=== PATIENT | male | born 1940 | race Caucasian/White ===

== ENCOUNTER 2017-01-19 05:31 | Inpatient (IN) | payer MEDICAID, MEDICARE, OTHER ==
[~2017-01-19] VITALS: Ht 175.3 cm; Wt 91.0 kg
[~2017-01-19 05:31] MED LIST: ATOR20TA86 PO; GLIP5 PO; HYDR-3965 PO; LISI-661 PO; METF500T4 PO; OMEP20 PO; PIOG30TA2 PO; WARF1 PO
[2017-01-19] MEDS ORDERED: NPH,100V SQ (05:47)
[2017-01-19] MEDS ORDERED: WARF2.5 PO (05:47)
[2017-01-19] MEDS ORDERED: ATEN25 PO (05:47)
[2017-01-19] MEDS ORDERED: ATOR40TA28 PO (05:47)
[2017-01-19] MEDS ORDERED: HYDR-3971 PO (05:47)
[2017-01-19] MEDS ORDERED: GLIP10 PO (05:47)
[2017-01-19] MEDS ORDERED: METF500T4 PO (05:47)
[2017-01-19 06:17] LABS: BASOPHILS # (AUTO) 0.07 K/uL (0.00-0.20); BASOPHILS % (AUTO) 0.8 % (0.0-2.0); EOSINOPHILS # (AUTO) 0.22 K/uL (0.00-0.70); EOSINOPHILS % (AUTO) 2.78 % (1.0-6.0); HEMATOCRIT 32.5 % (41-53); HEMOGLOBIN 10.6 g/dL (13.5-17.5); LYMPHOCYTES # (AUTO) 1.4 K/uL (1.0-4.8); LYMPHOCYTES % (AUTO) 17.7 % (22.0-44.0); MEAN CORPUSCULAR HEMOGLOBIN 27.1 pg (26.0-34.0); MEAN CORPUSCULAR HGB CONC 32.4 G/dL (31.0-37.0); MEAN CORPUSCULAR VOLUME 84 fL (80-100); MONOCYTES # (AUTO) 0.5 K/uL (0.1-1.0); MONOCYTES % (AUTO) 5.9 % (2.0-9.0); NEUTROPHILS # (AUTO) 5.9 K/uL (1.8-7.7); NEUTROPHILS % (AUTO) 72.8 % (40.0-70.0); PLATELET COUNT (AUTO) 329 K/uL (150-450); RED CELL DISTRIBUTION WIDTH 16.6 % (11.5-14.5)
[2017-01-19 06:25] LABS: ANION GAP 11 mmol/L (8-16); CALCIUM, TOTAL 8.9 mg/dL (8.8-10.5); CARBON DIOXIDE 27 mmol/L (22-29); CHLORIDE 104 mmol/L (98-107); CREATININE 1.07 mg/dL (0.60-1.30); GLOMERULAR FILTR. RATE CALC > 60 mL/min (>60); POTASSIUM 3.6 mmol/L (3.5-5.1); SODIUM SERUM 142 mmol/L (136-145); UREA NITROGEN, BLOOD 14 mg/dL (7-18)
[2017-01-19 06:30] LABS: PROTHROMBIN TIME 59.5 SEC (9.4-11.6)
[2017-01-19 06:32] LABS: ALANINE AMINOTRANSFERASE 15 U/L (12-78); ALBUMIN 3.2 g/dL (3.4-5.0); ASPARTATE AMINOTRANSFERASE 5 U/L (15-37); BILIRUBIN,TOTAL 0.3 mg/dL (0.1-1.0); CREATINE KINASE, TOTAL 71 U/L (39-308); TOTAL PROTEIN, SERUM 7.1 g/dL (6.4-8.2)
[2017-01-19 06:34] LABS: INR 5.6 (0.9-1.1)
[2017-01-19 06:38] LABS: B-TYPE NATRIURETIC PEPTIDE 179 pg/mL (0-100)
[2017-01-19] MEDS ORDERED: ALBUTEROL SULFATE 2.5 MG/0.5 ML NEB SOLUTION NEB ONE (07:00)
[2017-01-19] MEDS ORDERED: IPRATROPIUM BROMIDE 0.5 MG/2.5 ML NEB SOLUTION NEB ONE (07:00)
[2017-01-19] MEDS ORDERED: ACETAMINOPHEN 325 MG TABLET PO PRN ×2 (08:45→17:45)
[2017-01-19] MEDS ORDERED: ONDANSETRON HCL 4 MG/2 ML VIAL IVP PRN (08:45)
[2017-01-19] MEDS ORDERED: LEVOFLOXACIN 500 MG/D5% WATER 100 ML IV ONE (08:45)
[2017-01-19] MEDS ORDERED: 0.9% SODIUM CHLORIDE 10 ML SYRINGE IVP PRN ×2 (08:45→17:45)
[2017-01-19] MEDS ORDERED: CloNIDine HCL 0.2 MG TABLET PO ONE (09:00)
[2017-01-19] MEDS ORDERED: METOPROLOL SUCCINATE 25 MG ER TABLET PO ONE (09:00)
[2017-01-19 09:29] LABS: APPEARANCE,URINE CLEAR (CLEAR); GLUCOSE, URINE (UA) 500 mg/dL (NEGATIVE); KETONES,URINE NEGATIVE (NEGATIVE); LEUKOCYTE ESTERASE ,URINE NEGATIVE (NEGATIVE); OCCULT BLOOD,URINE TRACE (NEGATIVE); PH,URINE 6.5 (5.0-8.0); PROTEIN,URINE SEE CONFIRM (NEGATIVE)
[2017-01-19 09:30] LABS: ADD UA MICROSCOPIC YES
[2017-01-19 09:37] LABS: SULFOSALICYLIC ACID,URINE 1+ (Negative)
[2017-01-19 09:38] LABS: RBC,URINE 0-2 /HPF (0-2); SQUAMOUS EPITHELIAL CELL,UR Few /LPF (None Seen); WBC,URINE None Seen /HPF (0-5)
[2017-01-19 10:55] VITALS: BP 169/78
[2017-01-19 15:45] VITALS: BP 149/77
[2017-01-19] MEDS ORDERED: ALBUTEROL SULFATE 2.5 MG/0.5 ML NEB SOLUTION NEB PRN (17:45)
[2017-01-19] MEDS ORDERED: OxyCODONE HCL/ACETAMINOPHEN 5-325 MG TABLET PO PRN (17:45)
[2017-01-19] MEDS ORDERED: DEXTROSE 50%-WATER 25 GM/50 ML SYRINGE IVP PRN (17:45)
[2017-01-19] MEDS ORDERED: MAGNESIUM HYDROXIDE SUSPENSION 30 ML UDCUP PO PRN (17:45)
[2017-01-19] MEDS ORDERED: SODIUM CHLORIDE 0.9% 250 ML IV ONE (18:00)
[2017-01-19] MEDS: LISINOPRIL 10 MG TABLET PO SCH (18:07)
[2017-01-19] MEDS: ATENOLOL 25 MG TABLET PO SCH (18:10)
[2017-01-19] MEDS: INSULIN ASPART 100 UNITS/ML SQ PRN ×2 (18:12→22:30)
[2017-01-19] MEDS: ATORVASTATIN CALCIUM 40 MG TABLET PO SCH (18:13)
[2017-01-19] MEDS: PANTOPRAZOLE SODIUM 40 MG/VIAL IVP SCH (18:13)
[2017-01-19] MEDS: CefTRIAXone 1 GM/DEXTROSE 50 ML IV SCH (18:54)
[2017-01-19 19:32] VITALS: BP 151/79
[2017-01-19] MEDS: OXYGEN THERAPY IH SCH (20:23)
[2017-01-19] MEDS: DOCUSATE SODIUM 100 MG CAPSULE PO SCH (20:23)
[2017-01-19] MEDS: IPRATROPIUM BROMIDE 0.5 MG/2.5 ML NEB SOLUTION NEB SCH (21:51)
[2017-01-19] MEDS: ALBUTEROL SULFATE 2.5 MG/0.5 ML NEB SOLUTION NEB SCH (21:51)
[2017-01-19 23:31] VITALS: BP 148/73
[2017-01-20] MEDS: ALBUTEROL SULFATE 2.5 MG/0.5 ML NEB SOLUTION NEB SCH ×4 (02:00→19:40)
[2017-01-20] MEDS: IPRATROPIUM BROMIDE 0.5 MG/2.5 ML NEB SOLUTION NEB SCH ×4 (02:00→19:40)
[2017-01-20] MEDS: OxyCODONE HCL/ACETAMINOPHEN 5-325 MG TABLET PO PRN ×2 (03:37→20:22)
[2017-01-20 03:58] VITALS: BP 135/74
[2017-01-20 06:18] LABS: BASOPHILS % (AUTO) 0.6 % (0.0-2.0); EOSINOPHILS % (AUTO) 2.4 % (1.0-6.0); HEMATOCRIT 30.1 % (41-53); LYMPHOCYTES # (AUTO) 1.9 K/uL (1.0-4.8); LYMPHOCYTES % (AUTO) 19.3 % (22.0-44.0); MEAN CORPUSCULAR HEMOGLOBIN 27.2 pg (26.0-34.0); MEAN CORPUSCULAR HGB CONC 33.1 G/dL (31.0-37.0); MEAN CORPUSCULAR VOLUME 82 fL (80-100); MONOCYTES # (AUTO) 0.7 K/uL (0.1-1.0); NEUTROPHILS % (AUTO) 70.7 % (40.0-70.0); PLATELET COUNT (AUTO) 345 K/uL (150-450); RED BLOOD CELL COUNT(AUTO) 3.66 MIL/uL (4.50-5.90); RED CELL DISTRIBUTION WIDTH 16.7 % (11.5-14.5); WHITE BLOOD COUNT (AUTO) 9.9 K/uL (4.5-11.0)
[2017-01-20 06:22] LABS: PROTHROMBIN TIME 47.2 SEC (9.4-11.6)
[2017-01-20] MEDS: INSULIN ASPART 100 UNITS/ML SQ PRN ×4 (06:23→21:03)
[2017-01-20 06:43] LABS: ALANINE AMINOTRANSFERASE 16 U/L (12-78); ANION GAP 9 mmol/L (8-16); ASPARTATE AMINOTRANSFERASE 11 U/L (15-37); BILIRUBIN,TOTAL 0.4 mg/dL (0.1-1.0); CALCIUM, TOTAL 9.1 mg/dL (8.8-10.5); CARBON DIOXIDE 27 mmol/L (22-29); CHLORIDE 102 mmol/L (98-107); CREATININE 1.05 mg/dL (0.60-1.30); GLOMERULAR FILTR. RATE CALC > 60 mL/min (>60); POTASSIUM 4.4 mmol/L (3.5-5.1); SODIUM SERUM 138 mmol/L (136-145); TOTAL PROTEIN, SERUM 6.8 g/dL (6.4-8.2); UREA NITROGEN, BLOOD 19 mg/dL (7-18)
[2017-01-20 07:50] VITALS: BP 139/83
[2017-01-20 08:06] LABS: INR 4.5 (0.9-1.1)
[2017-01-20] MEDS: LISINOPRIL 10 MG TABLET PO SCH (08:42)
[2017-01-20] MEDS: DOCUSATE SODIUM 100 MG CAPSULE PO SCH ×2 (08:42→20:22)
[2017-01-20] MEDS: PANTOPRAZOLE SODIUM 40 MG/VIAL IVP SCH (08:42)
[2017-01-20] MEDS: OXYGEN THERAPY IH SCH ×2 (08:42→20:00)
[2017-01-20] MEDS: ATORVASTATIN CALCIUM 40 MG TABLET PO SCH (08:43)
[2017-01-20] MEDS: ATENOLOL 25 MG TABLET PO SCH (08:46)
[2017-01-20 11:14] VITALS: BP 129/70
[2017-01-20] MEDS ORDERED: MAGNESIUM SULFATE 4 GM/WATER 100 ML IV ONE (12:45)
[2017-01-20 13:18] LABS: THYROID STIMULATING HORMONE 3.76 uIU/mL (0.36-3.74)
[2017-01-20] MEDS ORDERED: SODIUM CHLORIDE 0.9% 100 ML ONE ×2 (13:40→15:48)
[2017-01-20] MEDS ORDERED: *CLINICAL-WARFARIN SODIUM DOSING CLINICAL ONE ×2 (15:00)
[2017-01-20] MEDS ORDERED: IOVERSOL 350 MG/ML 100 ML VIAL ONE (15:48)
[2017-01-20 16:25] VITALS: BP 165/77
[2017-01-20] MEDS: CefTRIAXone 1 GM/DEXTROSE 50 ML IV SCH (18:29)
[2017-01-20 19:29] VITALS: BP 156/75
[2017-01-20 23:44] VITALS: BP 122/75
[2017-01-21] MEDS: ALBUTEROL SULFATE 2.5 MG/0.5 ML NEB SOLUTION NEB SCH ×4 (02:34→19:38)
[2017-01-21] MEDS: IPRATROPIUM BROMIDE 0.5 MG/2.5 ML NEB SOLUTION NEB SCH ×4 (02:34→19:38)
[2017-01-21 04:46] VITALS: BP 145/77
[2017-01-21] MEDS: INSULIN ASPART 100 UNITS/ML SQ PRN ×4 (05:35→20:31)
[2017-01-21 07:10] LABS: BASOPHILS # (AUTO) 0.06 K/uL (0.00-0.20); BASOPHILS % (AUTO) 0.7 % (0.0-2.0); EOSINOPHILS # (AUTO) 0.22 K/uL (0.00-0.70); EOSINOPHILS % (AUTO) 2.78 % (1.0-6.0); HEMATOCRIT 28.6 % (41-53); HEMOGLOBIN 9.3 g/dL (13.5-17.5); LYMPHOCYTES # (AUTO) 1.9 K/uL (1.0-4.8); LYMPHOCYTES % (AUTO) 23.9 % (22.0-44.0); MEAN CORPUSCULAR HEMOGLOBIN 27.3 pg (26.0-34.0); MEAN CORPUSCULAR HGB CONC 32.6 G/dL (31.0-37.0); MEAN CORPUSCULAR VOLUME 84 fL (80-100); MONOCYTES # (AUTO) 0.6 K/uL (0.1-1.0); MONOCYTES % (AUTO) 7.9 % (2.0-9.0); NEUTROPHILS # (AUTO) 5.2 K/uL (1.8-7.7); NEUTROPHILS % (AUTO) 64.7 % (40.0-70.0); PLATELET COUNT (AUTO) 282 K/uL (150-450); RED BLOOD CELL COUNT(AUTO) 3.42 MIL/uL (4.50-5.90); RED CELL DISTRIBUTION WIDTH 16.8 % (11.5-14.5); WHITE BLOOD COUNT (AUTO) 8.1 K/uL (4.5-11.0)
[2017-01-21 07:15] LABS: INR 2.6 (0.9-1.1); PROTHROMBIN TIME 27.4 SEC (9.4-11.6)
[2017-01-21 07:31] VITALS: BP 108/63
[2017-01-21 08:11] LABS: ANION GAP 9 mmol/L (8-16); CALCIUM, TOTAL 9.1 mg/dL (8.8-10.5); CARBON DIOXIDE 28 mmol/L (22-29); CHLORIDE 103 mmol/L (98-107); CREATININE 0.99 mg/dL (0.60-1.30); GLOMERULAR FILTR. RATE CALC > 60 mL/min (>60); POTASSIUM 4.2 mmol/L (3.5-5.1); SODIUM SERUM 140 mmol/L (136-145); UREA NITROGEN, BLOOD 20 mg/dL (7-18)
[2017-01-21] MEDS: OXYGEN THERAPY IH SCH ×2 (08:22→20:32)
[2017-01-21 08:28] LABS: GLUCOSE,POINT OF CARE 339 MG/DL (70-110)
[2017-01-21 08:28] LABS: GLUCOSE,POINT OF CARE 238 MG/DL (70-110)
[2017-01-21] MEDS: ATENOLOL 25 MG TABLET PO SCH (09:00)
[2017-01-21] MEDS: PANTOPRAZOLE SODIUM 40 MG/VIAL IVP SCH (09:32)
[2017-01-21] MEDS: DOCUSATE SODIUM 100 MG CAPSULE PO SCH ×2 (09:32→20:21)
[2017-01-21] MEDS: ATORVASTATIN CALCIUM 40 MG TABLET PO SCH (09:32)
[2017-01-21] MEDS: LISINOPRIL 10 MG TABLET PO SCH (09:34)
[2017-01-21 11:31] VITALS: BP 158/77
[2017-01-21 11:53] LABS: MAGNESIUM 1.4 mg/dL (1.80-2.40)
[2017-01-21] MEDS ORDERED: WARFARIN SODIUM-INR 2.0-3.0-RX DOSING PER PROTOCOL PO PRN (12:30)
[2017-01-21] MEDS ORDERED: MAGNESIUM SULFATE 2 GM in DEXTROSE 5%-WATER 50 ML IV PRN (12:45)
[2017-01-21] MEDS ORDERED: MAGNESIUM SULFATE 4 GM/WATER 100 ML IV PRN (12:45)
[2017-01-21 13:15] LABS: ABG A-A DIFF O2 15.8 mmHg (10-20.0); ABG BASE EXCESS 2.5 mmol/L (-2.0-3.0); ABG HCO3 26.2 mmol/L (22.0-26.0); ABG OXYHEMOGLOBIN 93.4 % (94.0-100.0); ABG PCO2 47 mmHg (35-45); ABG PH 7.383 (7.35-7.450); TEMPERATURE, FAHRENHEIT, BG 98.6 FAHREN (96.0-98.6)
[2017-01-21 13:16] LABS: ALLEN TEST, BLOOD GAS Positive
[2017-01-21] MEDS: AmLODIPine BESYLATE 5 MG TABLET PO SCH (13:27)
[2017-01-21 15:18] VITALS: BP 153/87
[2017-01-21] MEDS ORDERED: WARFARIN SODIUM 2 MG TABLET PO ONE (17:00)
[2017-01-21] MEDS: CefTRIAXone 1 GM/DEXTROSE 50 ML IV SCH (17:25)
[2017-01-21 17:32] LABS: GLUCOSE COMMENT 1 Received Meds; GLUCOSE,POINT OF CARE 246 MG/DL (70-110)
[2017-01-21 17:32] LABS: GLUCOSE,POINT OF CARE 294 MG/DL (70-110)
[2017-01-21 17:32] LABS: GLUCOSE COMMENT 1 Received Meds; GLUCOSE,POINT OF CARE 253 MG/DL (70-110)
[2017-01-21 17:33] LABS: GLUCOSE COMMENT 1 Received Meds; GLUCOSE,POINT OF CARE 387 MG/DL (70-110)
[2017-01-21 17:33] LABS: GLUCOSE,POINT OF CARE 309 MG/DL (70-110)
[2017-01-21 17:33] LABS: GLUCOSE COMMENT 1 Received Meds; GLUCOSE,POINT OF CARE 197 MG/DL (70-110)
[2017-01-21 17:33] LABS: GLUCOSE,POINT OF CARE 192 MG/DL (70-110)
[2017-01-21 20:02] VITALS: BP 110/72
[2017-01-22 00:09] VITALS: BP 102/57
[2017-01-22] MEDS: IPRATROPIUM BROMIDE 0.5 MG/2.5 ML NEB SOLUTION NEB SCH ×4 (02:26→20:00)
[2017-01-22] MEDS: ALBUTEROL SULFATE 2.5 MG/0.5 ML NEB SOLUTION NEB SCH ×4 (02:26→20:00)
[2017-01-22 05:29] VITALS: BP 137/75
[2017-01-22] MEDS: INSULIN ASPART 100 UNITS/ML SQ PRN ×3 (06:15→17:47)
[2017-01-22 06:50] LABS: INR 1.7 (0.9-1.1); PROTHROMBIN TIME 18.1 SEC (9.4-11.6)
[2017-01-22 06:54] LABS: BASOPHILS # (AUTO) 0.07 K/uL (0.00-0.20); BASOPHILS % (AUTO) 0.7 % (0.0-2.0); EOSINOPHILS % (AUTO) 1.91 % (1.0-6.0); HEMATOCRIT 30.6 % (41-53); LYMPHOCYTES # (AUTO) 1.8 K/uL (1.0-4.8); LYMPHOCYTES % (AUTO) 17.3 % (22.0-44.0); MEAN CORPUSCULAR HEMOGLOBIN 27.5 pg (26.0-34.0); MEAN CORPUSCULAR HGB CONC 32.7 G/dL (31.0-37.0); MEAN CORPUSCULAR VOLUME 84 fL (80-100); MONOCYTES # (AUTO) 0.8 K/uL (0.1-1.0); MONOCYTES % (AUTO) 7.8 % (2.0-9.0); NEUTROPHILS # (AUTO) 7.5 K/uL (1.8-7.7); NEUTROPHILS % (AUTO) 72.4 % (40.0-70.0); PLATELET COUNT (AUTO) 318 K/uL (150-450); RED BLOOD CELL COUNT(AUTO) 3.64 MIL/uL (4.50-5.90); RED CELL DISTRIBUTION WIDTH 16.6 % (11.5-14.5); WHITE BLOOD COUNT (AUTO) 10.4 K/uL (4.5-11.0)
[2017-01-22 07:19] VITALS: BP 163/90
[2017-01-22 07:57] LABS: GLUCOSE COMMENT 1 Received Meds; GLUCOSE,POINT OF CARE 229 MG/DL (70-110)
[2017-01-22 07:57] LABS: GLUCOSE COMMENT 1 Received Meds; GLUCOSE,POINT OF CARE 349 MG/DL (70-110)
[2017-01-22] MEDS: OXYGEN THERAPY IH SCH ×2 (08:35→20:00)
[2017-01-22] MEDS: LISINOPRIL 10 MG TABLET PO SCH (08:36)
[2017-01-22] MEDS: ATORVASTATIN CALCIUM 40 MG TABLET PO SCH (08:36)
[2017-01-22] MEDS: DOCUSATE SODIUM 100 MG CAPSULE PO SCH ×2 (08:36→19:58)
[2017-01-22] MEDS: PANTOPRAZOLE SODIUM 40 MG/VIAL IVP SCH (08:36)
[2017-01-22] MEDS: AmLODIPine BESYLATE 5 MG TABLET PO SCH (08:36)
[2017-01-22 11:36] VITALS: BP 157/99
[2017-01-22] MEDS ORDERED: AMLO-511 PO (12:41)
[2017-01-22] MEDS ORDERED: MAGOX PO (12:42)
[2017-01-22] MEDS ORDERED: MAGNESIUM SULFATE 1 GM in DEXTROSE 5%-WATER 50 ML IV ONE (14:45)
[2017-01-22 14:57] LABS: GLUCOSE COMMENT 1 Received Meds; GLUCOSE,POINT OF CARE 227 MG/DL (70-110)
[2017-01-22] MEDS ORDERED: MAGNESIUM SULFATE 2 GM in DEXTROSE 5%-WATER 50 ML IV ONE (15:00)
[2017-01-22 15:31] VITALS: BP 156/86
[2017-01-22] MEDS ORDERED: WARFARIN SODIUM 3 MG TABLET PO SCH (17:00)
[2017-01-22] MEDS: CefTRIAXone 1 GM/DEXTROSE 50 ML IV SCH (17:46)
[2017-01-22 19:35] VITALS: BP 155/69
[2017-01-22 19:57] LABS: GLUCOSE,POINT OF CARE 284 MG/DL (70-110)
== END 2017-01-22 20:15 | disposition home or self-care (01) | DRG 813 ==
LOC: EMS 05:32 → 5S 09:00
PROVIDERS: ADMIT Internal Medicine; ATTEND Internal Medicine
DX: D68.32 Hemorrhagic disorder due to extrinsic circulating anticoagulants (principal); J18.9 Pneumonia, unspecified organism; R04.2 Hemoptysis; D68.9 Coagulation defect, unspecified; E11.9 Type 2 diabetes mellitus without complications; I44.1 Atrioventricular block, second degree; R60.0 Localized edema; I10 Essential (primary) hypertension; E78.5 Hyperlipidemia, unspecified; E78.00 Pure hypercholesterolemia, unspecified; J40 Bronchitis, not specified as acute or chronic; T45.515A Adverse effect of anticoagulants, initial encounter
CPT/HCPCS: 71260; 82805; 82962; 83605; 83735; 84436; 84443; 84481; 87040; 93005; 93306; 94640; 96365; 96366; 99285; C9113; J0696; J1956; J3475; J7050; J7060

== ENCOUNTER 2017-04-01 02:02 | Emergency (ER) | payer MEDICARE, MEDICAID ==
[~2017-04-01] VITALS: Ht 172.7 cm; Wt 98.0 kg
[~2017-04-01 02:02] MED LIST changes: +AMLO-511 PO; -ATOR20TA86 PO; +ATOR40TA28 PO; -GLIP5 PO; -HYDR-3965 PO; +HYDR-4069 PO; +MAGOX PO; -PIOG30TA2 PO; -WARF1 PO; +WARF2.5 PO
[2017-04-01] MEDS ORDERED: NPH,100V SQ (02:13)
[2017-04-01] MEDS ORDERED: GABA-529 PO (02:13)
[2017-04-01] MEDS ORDERED: GLIP10 PO (02:13)
[2017-04-01 02:46] LABS: BASOPHILS % (AUTO) 0.7 % (0.0-2.0); EOSINOPHILS % (AUTO) 1.9 % (1.0-6.0); HEMATOCRIT 38.3 % (41-53); HEMOGLOBIN 12.7 g/dL (13.5-17.5); LYMPHOCYTES # (AUTO) 2.7 K/uL (1.0-4.8); LYMPHOCYTES % (AUTO) 26.6 % (22.0-44.0); MEAN CORPUSCULAR HEMOGLOBIN 27.2 pg (26.0-34.0); MEAN CORPUSCULAR HGB CONC 33.2 G/dL (31.0-37.0); MEAN CORPUSCULAR VOLUME 82 fL (80-100); MONOCYTES # (AUTO) 0.7 K/uL (0.1-1.0); MONOCYTES % (AUTO) 7.1 % (2.0-9.0); NEUTROPHILS # (AUTO) 6.4 K/uL (1.8-7.7); NEUTROPHILS % (AUTO) 63.7 % (40.0-70.0); PLATELET COUNT (AUTO) 370 K/uL (150-450); RED BLOOD CELL COUNT(AUTO) 4.68 MIL/uL (4.50-5.90); RED CELL DISTRIBUTION WIDTH 15.4 % (11.5-14.5); WHITE BLOOD COUNT (AUTO) 10.1 K/uL (4.5-11.0)
[2017-04-01 02:52] LABS: PROTHROMBIN TIME 10.4 SEC (9.4-11.6)
[2017-04-01 02:53] LABS: ANION GAP 10 mmol/L (8-16); CALCIUM, TOTAL 9.2 mg/dL (8.8-10.5); CARBON DIOXIDE 28 mmol/L (22-29); CHLORIDE 99 mmol/L (98-107); CREATININE 1.15 mg/dL (0.60-1.30); GLOMERULAR FILTR. RATE CALC > 60 mL/min (>60); SODIUM SERUM 137 mmol/L (136-145); UREA NITROGEN, BLOOD 17 mg/dL (7-18)
[2017-04-01 03:01] LABS: ALANINE AMINOTRANSFERASE 32 U/L (12-78); ALBUMIN 3.5 g/dL (3.4-5.0); ASPARTATE AMINOTRANSFERASE 16 U/L (15-37); BILIRUBIN,TOTAL 0.3 mg/dL (0.1-1.0); CREATINE KINASE, TOTAL 56 U/L (39-308)
[2017-04-01 03:21] LABS: B-TYPE NATRIURETIC PEPTIDE 93 pg/mL (0-100)
[2017-04-01] MEDS ORDERED: ACETAMINOPHEN 500 MG TABLET PO ONE (04:00)
[2017-04-01] MEDS ORDERED: KETOROLAC TROMETHAMINE 60 MG/2 ML VIAL IM ONE (04:00)
[2017-04-01 04:23] VITALS: BP 146/98
== END 2017-04-01 04:50 | disposition home or self-care (01) ==
LOC: EMS 02:04
DX: R07.89 Other chest pain (principal); E11.65 Type 2 diabetes mellitus with hyperglycemia; M54.5 Low back pain; K21.9 Gastro-esophageal reflux disease without esophagitis; E78.00 Pure hypercholesterolemia, unspecified; I10 Essential (primary) hypertension
CPT/HCPCS: 36415; 71010; 80053; 82550; 83880; 84484; 85025; 85610; 85730; 93005; 96372; 99285; J1885

== ENCOUNTER 2017-12-31 23:58 | Emergency (ER) | payer OTHER ==
[~2017-12-31] VITALS: Ht 170.2 cm; Wt 90.9 kg
[~2017-12-31 23:58] MED LIST changes: +GABA-529 PO; +GLIP10 PO; -METF500T4 PO; +METF500T6 PO; +NPH,100V SQ; -WARF2.5 PO
[2018-01-01] MEDS ORDERED: PRIM50TA29 PO (00:34)
[2018-01-01] MEDS ORDERED: TRAZ-144 PO (00:34)
[2018-01-01] MEDS ORDERED: VITAD400 PO (00:34)
[2018-01-01] MEDS ORDERED: IBUP-2070 PO (00:35)
[2018-01-01] MEDS ORDERED: NAPR-1024 PO (00:35)
[2018-01-01] MEDS ORDERED: FURO20 PO (00:35)
[2018-01-01] MEDS ORDERED: LISI40TA4 PO (00:35)
[2018-01-01] MEDS ORDERED: FERR-89 PO (00:35)
[2018-01-01 01:47] LABS: APPEARANCE,URINE CLEAR (CLEAR); BILIRUBIN,URINE NEGATIVE (NEGATIVE); GLUCOSE, URINE (UA) 500 mg/dL (NEGATIVE); KETONES,URINE NEGATIVE (NEGATIVE); LEUKOCYTE ESTERASE ,URINE NEGATIVE (NEGATIVE); NITRATE,URINE NEGATIVE (NEGATIVE); OCCULT BLOOD,URINE NEGATIVE (NEGATIVE); PH,URINE 6.5 (5.0-8.0); PROTEIN,URINE NEGATIVE (NEGATIVE); UROBILINOGEN,URINE 0.2 mg/dL (<=1.0)
[2018-01-01 01:47] LABS: BASOPHILS % (AUTO) 0.3 % (0.0-2.0); HEMATOCRIT 33.2 % (41-53); HEMOGLOBIN 11.6 g/dL (13.5-17.5); LYMPHOCYTES # (AUTO) 2.2 K/uL (1.0-4.8); LYMPHOCYTES % (AUTO) 25.7 % (22.0-44.0); MEAN CORPUSCULAR HEMOGLOBIN 30.8 pg (26.0-34.0); MEAN CORPUSCULAR HGB CONC 35.1 G/dL (31.0-37.0); MEAN CORPUSCULAR VOLUME 88 fL (80-100); MONOCYTES # (AUTO) 0.7 K/uL (0.1-1.0); MONOCYTES % (AUTO) 7.8 % (2.0-9.0); NEUTROPHILS # (AUTO) 5.5 K/uL (1.8-7.7); NEUTROPHILS % (AUTO) 63.2 % (40.0-70.0); PLATELET COUNT (AUTO) 291 K/uL (150-450); RED BLOOD CELL COUNT(AUTO) 3.78 MIL/uL (4.50-5.90)
[2018-01-01 02:03] LABS: BACTERIA,URINE None Seen /HPF (None Seen); RBC,URINE None Seen /HPF (0-2); WBC,URINE None Seen /HPF (0-5)
[2018-01-01 02:06] LABS: CALCIUM, TOTAL 8.8 mg/dL (8.8-10.5); CREATININE 1.21 mg/dL (0.60-1.30)
[2018-01-01 02:13] LABS: ALBUMIN 3.6 g/dL (3.4-5.0); BILIRUBIN,TOTAL 0.3 mg/dL (0.1-1.0); TOTAL PROTEIN, SERUM 7.1 g/dL (6.4-8.2)
[2018-01-01 02:32] VITALS: BP 139/73
[2018-01-01] MEDS ORDERED: FUROSEMIDE 20 MG TABLET PO ONE (03:15)
== END 2018-01-01 03:28 | disposition home or self-care (01) ==
LOC: EMS 23:59
DX: I11.0 Hypertensive heart disease with heart failure (principal); I50.9 Heart failure, unspecified; K21.9 Gastro-esophageal reflux disease without esophagitis; E11.9 Type 2 diabetes mellitus without complications; E78.00 Pure hypercholesterolemia, unspecified; I10 Essential (primary) hypertension
CPT/HCPCS: 93005; 93971; 99285

== ENCOUNTER 2018-02-19 10:12 | Emergency (ER) | payer OTHER ==
[~2018-02-19] VITALS: Ht 170.2 cm; Wt 86.4 kg
[~2018-02-19 10:12] MED LIST changes: +FERR-89 PO; +FURO20 PO; -HYDR-4069 PO; +IBUP-2070 PO; -LISI-661 PO; +LISI40TA4 PO; -MAGOX PO; +NAPR-1024 PO; -NPH,100V SQ; +PRIM50TA29 PO; +TRAZ-184 PO; +VITAD400 PO
[2018-02-19 10:21] VITALS: BP 183/110
[2018-02-19 10:24] LABS: GLUCOSE,POINT OF CARE 226 MG/DL (70-110)
[2018-02-19] MEDS ORDERED: BACITRACIN 0.9 GM PACKET OINTMENT TP ONE (12:00)
== END 2018-02-19 12:45 | disposition home or self-care (01) ==
LOC: EMS 10:15
DX: E11.621 Type 2 diabetes mellitus with foot ulcer (principal); L97.229 Non-pressure chronic ulcer of left calf with unspecified severity; K21.9 Gastro-esophageal reflux disease without esophagitis; E78.00 Pure hypercholesterolemia, unspecified; I10 Essential (primary) hypertension; M19.90 Unspecified osteoarthritis, unspecified site; Z79.4 Long term (current) use of insulin; Z79.899 Other long term (current) drug therapy; Z79.84 Long term (current) use of oral hypoglycemic drugs
CPT/HCPCS: 99282

== ENCOUNTER 2018-05-27 14:27 | Inpatient (IN) | payer OTHER ==
[~2018-05-27] VITALS: Ht 170.2 cm; Wt 88.9 kg
[~2018-05-27 14:27] MED LIST changes: -AMLO-511 PO; +METF-960 PO; -METF500T6 PO; +TAMS0.4C32 PO
[2018-05-27] MEDS ORDERED: SODIUM CHLORIDE 0.9% 1,000 ML IV ONE ×2 (15:45→20:30)
[2018-05-27 15:57] LABS: BASOPHILS % (AUTO) 3.2 % (0.0-2.0); EOSINOPHILS % (AUTO) 1.8 % (1.0-6.0); HEMOGLOBIN 12.2 g/dL (13.5-17.5); LYMPHOCYTES # (AUTO) 1.6 K/uL (1.0-4.8); LYMPHOCYTES % (AUTO) 16.2 % (22.0-44.0); MEAN CORPUSCULAR HEMOGLOBIN 29.8 pg (26.0-34.0); MEAN CORPUSCULAR VOLUME 88 fL (80-100); MONOCYTES # (AUTO) 0.5 K/uL (0.1-1.0); MONOCYTES % (AUTO) 5.2 % (2.0-9.0); NEUTROPHILS # (AUTO) 7.4 K/uL (1.8-7.7); NEUTROPHILS % (AUTO) 73.6 % (40.0-70.0); PLATELET COUNT (AUTO) 305 K/uL (150-450); RED CELL DISTRIBUTION WIDTH 13.3 % (11.5-14.5)
[2018-05-27 16:08] LABS: INR 0.9 (0.9-1.1); PROTHROMBIN TIME 9.9 SEC (9.4-11.6)
[2018-05-27 16:15] LABS: ALBUMIN 3.5 g/dL (3.4-5.0); BILIRUBIN,TOTAL 0.3 mg/dL (0.1-1.0); CALCIUM, TOTAL 9.1 mg/dL (8.8-10.5); CREATININE 1.62 mg/dL (0.60-1.30); POTASSIUM 4.6 mmol/L (3.5-5.1); TOTAL PROTEIN, SERUM 7.3 g/dL (6.4-8.2)
[2018-05-27 16:34] LABS: APPEARANCE,URINE CLEAR (CLEAR); BILIRUBIN,URINE NEGATIVE (NEGATIVE); GLUCOSE, URINE (UA) >=1000 mg/dL (NEGATIVE); KETONES,URINE NEGATIVE (NEGATIVE); LEUKOCYTE ESTERASE ,URINE NEGATIVE (NEGATIVE); NITRATE,URINE NEGATIVE (NEGATIVE); OCCULT BLOOD,URINE NEGATIVE (NEGATIVE); PH,URINE 5.5 (5.0-8.0); PROTEIN,URINE NEGATIVE (NEGATIVE); UROBILINOGEN,URINE 0.2 mg/dL (<=1.0)
[2018-05-27 16:52] LABS: BACTERIA,URINE None Seen /HPF (None Seen); RBC,URINE 0-2 /HPF (0-2); WBC,URINE None Seen /HPF (0-5)
[2018-05-27 16:53] LABS: SQUAMOUS EPITHELIAL CELL,UR None Seen /LPF (None Seen)
[2018-05-27 17:09] LABS: GLUCOSE,POINT OF CARE 345 MG/DL (70-110)
[2018-05-27] MEDS ORDERED: ACETAMINOPHEN 325 MG TABLET PO PRN ×2 (17:30→20:30)
[2018-05-27] MEDS ORDERED: NITROGLYCERIN 2% (1 GM=INCH) PACKET TP ONE (17:30)
[2018-05-27] MEDS ORDERED: 0.9% SODIUM CHLORIDE 10 ML SYRINGE IVP PRN (17:30)
[2018-05-27] MEDS ORDERED: ONDANSETRON HCL 4 MG/2 ML VIAL IVP PRN (17:30)
[2018-05-27] MEDS ORDERED: METOPROLOL TARTRATE 50 MG TABLET PO ONE (17:45)
[2018-05-27 18:43] LABS: GLUCOSE,POINT OF CARE 278 MG/DL (70-110)
[2018-05-27] MEDS ORDERED: BISACODYL 10 MG RECTAL RECTAL SUPPOSITORY PR PRN (20:30)
[2018-05-27] MEDS ORDERED: DEXTROSE 50%-WATER 25 GM/50 ML SYRINGE IVP PRN (20:30)
[2018-05-27] MEDS ORDERED: ALBUTEROL SULFATE 2.5 MG/0.5 ML NEB SOLUTION NEB PRN (20:30)
[2018-05-27] MEDS: DOCUSATE SODIUM 100 MG CAPSULE PO SCH (21:00)
[2018-05-27 21:14] VITALS: BP 123/73
[2018-05-27] MEDS: ASPIRIN 81 MG CHEWABLE TABLET PO SCH (21:39)
[2018-05-27] MEDS: HEPARIN SODIUM,PORCINE 5,000 UNITS/ML VIAL SQ SCH (21:39)
[2018-05-27] MEDS: INSULIN LISPRO 100 UNITS/ML SQ PRN (22:00)
[2018-05-27] MEDS ORDERED: 0.9% SODIUM CHLORIDE 5 ML NEB SOLUTION NEB ONE (22:41)
[2018-05-27 23:37] VITALS: BP 120/59
[2018-05-28 03:31] VITALS: BP 130/71
[2018-05-28] MEDS ORDERED: GlipiZIDE 5 MG TABLET PO SCH (06:30)
[2018-05-28 06:38] LABS: BASOPHILS % (AUTO) 1.3 % (0.0-2.0); EOSINOPHILS % (AUTO) 3.2 % (1.0-6.0); HEMATOCRIT 33.5 % (41-53); HEMOGLOBIN 11.4 g/dL (13.5-17.5); LYMPHOCYTES # (AUTO) 2.1 K/uL (1.0-4.8); LYMPHOCYTES % (AUTO) 27.1 % (22.0-44.0); MEAN CORPUSCULAR HEMOGLOBIN 29.5 pg (26.0-34.0); MEAN CORPUSCULAR VOLUME 87 fL (80-100); MONOCYTES # (AUTO) 0.6 K/uL (0.1-1.0); MONOCYTES % (AUTO) 7.2 % (2.0-9.0); NEUTROPHILS # (AUTO) 4.7 K/uL (1.8-7.7); NEUTROPHILS % (AUTO) 61.2 % (40.0-70.0); PLATELET COUNT (AUTO) 296 K/uL (150-450); RED BLOOD CELL COUNT(AUTO) 3.86 MIL/uL (4.50-5.90); RED CELL DISTRIBUTION WIDTH 13.2 % (11.5-14.5)
[2018-05-28] MEDS: INSULIN LISPRO 100 UNITS/ML SQ PRN ×3 (06:38→20:59)
[2018-05-28 06:46] LABS: HEMOGLOBIN A1C 12.1 % (4.5-6.2)
[2018-05-28 07:27] LABS: ALANINE AMINOTRANSFERASE 20 U/L (12-78); ALBUMIN 2.9 g/dL (3.4-5.0); ALKALINE PHOSPHATASE 76 U/L (46-116); ANION GAP 8 mmol/L (8-16); ASPARTATE AMINOTRANSFERASE 14 U/L (15-37); BILIRUBIN,TOTAL 0.3 mg/dL (0.1-1.0); CARBON DIOXIDE 30 mmol/L (22-29); CHLORIDE 103 mmol/L (98-107); CHOLESTEROL 144 mg/dL (131-200); GLUCOSE,RANDOM 174 mg/dL (70-110); HDL CHOLESTEROL 48 mg/dL (40-60); LDL CHOL (CALC.) 56 mg/dL (0-130); POTASSIUM 3.5 mmol/L (3.5-5.1); SODIUM SERUM 141 mmol/L (136-145); TOTAL PROTEIN, SERUM 6.1 g/dL (6.4-8.2); TRIGLYCERIDES 202 mg/dL (15-150); UREA NITROGEN, BLOOD 14 mg/dL (7-18)
[2018-05-28 07:28] LABS: GLOMERULAR FILTR. RATE CALC > 60 mL/min (>60)
[2018-05-28 07:33] VITALS: BP 130/75
[2018-05-28] MEDS ORDERED: FUROSEMIDE 20 MG/2 ML VIAL IVP ONE (08:15)
[2018-05-28] MEDS ORDERED: POTASSIUM CHLORIDE 10% 40 MEQ/30 ML LIQUID UDCUP PO ONE (08:15)
[2018-05-28 08:23] LABS: GLUCOMETER DEV NAME(LOC) 5S 1N; GLUCOSE,POINT OF CARE 265 MG/DL (70-110)
[2018-05-28] MEDS: DOCUSATE SODIUM 100 MG CAPSULE PO SCH ×2 (09:00→20:15)
[2018-05-28] MEDS: ISOSORBIDE MONONITRATE 30 MG ER TABLET PO SCH (09:16)
[2018-05-28] MEDS: PANTOPRAZOLE SODIUM 40 MG DR TABLET PO SCH (09:16)
[2018-05-28] MEDS: ASPIRIN 81 MG CHEWABLE TABLET PO SCH (09:16)
[2018-05-28] MEDS: HEPARIN SODIUM,PORCINE 5,000 UNITS/ML VIAL SQ SCH ×2 (09:17→20:15)
[2018-05-28] MEDS: METOPROLOL SUCCINATE 25 MG ER TABLET PO SCH (10:43)
[2018-05-28] MEDS: ATORVASTATIN CALCIUM 40 MG TABLET PO SCH (10:43)
[2018-05-28 11:20] VITALS: BP 141/77
[2018-05-28 11:38] LABS: GLUCOMETER DEV NAME(LOC) 5S 2R; GLUCOSE,POINT OF CARE 180 MG/DL (70-110)
[2018-05-28 15:37] VITALS: BP 119/69
[2018-05-28 15:53] LABS: GLUCOMETER DEV NAME(LOC) 5N 2S; GLUCOSE,POINT OF CARE 200 MG/DL (70-110)
[2018-05-28] MEDS: GlipiZIDE 10 MG TABLET PO SCH (17:03)
[2018-05-28 18:39] LABS: GLUCOMETER DEV NAME(LOC) 5S 1N; GLUCOSE,POINT OF CARE 230 MG/DL (70-110)
[2018-05-28 20:03] VITALS: BP 128/69
[2018-05-29 00:06] VITALS: BP 130/65
[2018-05-29 00:18] LABS: GLUCOMETER DEV NAME(LOC) 5N 1P; GLUCOSE,POINT OF CARE 237 MG/DL (70-110)
[2018-05-29 04:40] VITALS: BP 128/65
[2018-05-29] MEDS: GlipiZIDE 10 MG TABLET PO SCH (05:34)
[2018-05-29] MEDS: INSULIN LISPRO 100 UNITS/ML SQ PRN ×2 (06:12→12:19)
[2018-05-29 06:33] LABS: BASOPHILS % (AUTO) 1.1 % (0.0-2.0); EOSINOPHILS % (AUTO) 3.6 % (1.0-6.0); HEMATOCRIT 34.6 % (41-53); LYMPHOCYTES # (AUTO) 2.3 K/uL (1.0-4.8); LYMPHOCYTES % (AUTO) 30.5 % (22.0-44.0); MEAN CORPUSCULAR HEMOGLOBIN 30.4 pg (26.0-34.0); MEAN CORPUSCULAR HGB CONC 34.7 G/dL (31.0-37.0); MEAN CORPUSCULAR VOLUME 88 fL (80-100); MONOCYTES # (AUTO) 0.5 K/uL (0.1-1.0); MONOCYTES % (AUTO) 7.2 % (2.0-9.0); NEUTROPHILS # (AUTO) 4.3 K/uL (1.8-7.7); NEUTROPHILS % (AUTO) 57.6 % (40.0-70.0); PLATELET COUNT (AUTO) 284 K/uL (150-450); RED BLOOD CELL COUNT(AUTO) 3.95 MIL/uL (4.50-5.90)
[2018-05-29 06:49] LABS: ALANINE AMINOTRANSFERASE 13 U/L (12-78); ALBUMIN 2.8 g/dL (3.4-5.0); ALKALINE PHOSPHATASE 83 U/L (46-116); ANION GAP 9 mmol/L (8-16); ASPARTATE AMINOTRANSFERASE 11 U/L (15-37); BILIRUBIN,TOTAL 0.3 mg/dL (0.1-1.0); CALCIUM, TOTAL 8.6 mg/dL (8.8-10.5); CARBON DIOXIDE 27 mmol/L (22-29); CHLORIDE 101 mmol/L (98-107); CREATININE 0.96 mg/dL (0.60-1.30); GLUCOSE,RANDOM 241 mg/dL (70-110); POTASSIUM 4.2 mmol/L (3.5-5.1); SODIUM SERUM 137 mmol/L (136-145); TOTAL PROTEIN, SERUM 6.3 g/dL (6.4-8.2); UREA NITROGEN, BLOOD 10 mg/dL (7-18)
[2018-05-29 07:03] LABS: GLOMERULAR FILTR. RATE CALC > 60 mL/min (>60)
[2018-05-29 07:37] VITALS: BP 132/63
[2018-05-29] MEDS: PANTOPRAZOLE SODIUM 40 MG DR TABLET PO SCH (08:55)
[2018-05-29] MEDS: DOCUSATE SODIUM 100 MG CAPSULE PO SCH (08:55)
[2018-05-29] MEDS: ATORVASTATIN CALCIUM 40 MG TABLET PO SCH (08:55)
[2018-05-29] MEDS: ISOSORBIDE MONONITRATE 30 MG ER TABLET PO SCH (08:55)
[2018-05-29] MEDS: ASPIRIN 81 MG CHEWABLE TABLET PO SCH (08:55)
[2018-05-29] MEDS: METOPROLOL SUCCINATE 25 MG ER TABLET PO SCH (08:57)
[2018-05-29] MEDS: HEPARIN SODIUM,PORCINE 5,000 UNITS/ML VIAL SQ SCH (09:09)
[2018-05-29 09:29] LABS: GLUCOMETER DEV NAME(LOC) 5S 1N; GLUCOSE,POINT OF CARE 273 MG/DL (70-110)
[2018-05-29] MEDS ORDERED: MAGNESIUM SULFATE 4 GM/WATER 100 ML IV ONE (09:45)
[2018-05-29] MEDS ORDERED: SODIUM CHLORIDE 0.9% 100 ML ONE (10:37)
[2018-05-29 11:18] VITALS: BP 128/67
[2018-05-29] MEDS ORDERED: MAGOX PO (15:12)
[2018-05-29 17:24] LABS: GLUCOMETER DEV NAME(LOC) 5S 2R; GLUCOSE,POINT OF CARE 237 MG/DL (70-110)
[2018-05-30 14:34] LABS: GLUCOMETER DEV NAME(LOC) 5S 1N; GLUCOSE,POINT OF CARE 244 MG/DL (70-110)
== END 2018-05-29 16:50 | disposition home or self-care (01) | DRG 683 ==
LOC: EMS 14:28 → 5N 17:42
PROVIDERS: ADMIT Internal Medicine; ATTEND Internal Medicine
DX: N17.9 Acute kidney failure, unspecified (principal); I50.32 Chronic diastolic (congestive) heart failure; I20.9 Angina pectoris, unspecified; E11.65 Type 2 diabetes mellitus with hyperglycemia; E66.9 Obesity, unspecified; E78.00 Pure hypercholesterolemia, unspecified; E83.42 Hypomagnesemia; I11.0 Hypertensive heart disease with heart failure; I44.7 Left bundle-branch block, unspecified; K21.9 Gastro-esophageal reflux disease without esophagitis; N40.0 Benign prostatic hyperplasia without lower urinary tract symptoms; Z82.49 Family history of ischemic heart disease and other diseases of the circulatory system; Z83.3 Family history of diabetes mellitus; Z91.11 Patient's noncompliance with dietary regimen; M19.90 Unspecified osteoarthritis, unspecified site; Z87.01 Personal history of pneumonia (recurrent)
CPT/HCPCS: 83036; 83735; 93005; 93306; 94640; G0378; J1644; J1940; J3475; J7030; J7050

== ENCOUNTER 2018-06-17 12:59 | Emergency (ER) | payer OTHER ==
[~2018-06-17] VITALS: Ht 170.2 cm; Wt 90.0 kg
[~2018-06-17 12:59] MED LIST changes: -FERR-89 PO; -FURO20 PO; -IBUP-2070 PO; +MAGOX PO; -NAPR-1024 PO; -PRIM50TA29 PO; -TRAZ-184 PO
[2018-06-17] MEDS ORDERED: CETI-290 PO (13:11)
[2018-06-17] MEDS ORDERED: AMLO-511 PO (13:11)
[2018-06-17] MEDS ORDERED: ATEN25TA PO (13:11)
[2018-06-17] MEDS ORDERED: CEPH500 PO (13:11)
[2018-06-17] MEDS ORDERED: FURO20 PO (13:11)
[2018-06-17 15:12] LABS: BASOPHILS % (AUTO) 0.9 % (0.0-2.0); HEMATOCRIT 36.9 % (41-53); HEMOGLOBIN 12.4 g/dL (13.5-17.5); LYMPHOCYTES # (AUTO) 1.2 K/uL (1.0-4.8); LYMPHOCYTES % (AUTO) 11.1 % (22.0-44.0); MEAN CORPUSCULAR HEMOGLOBIN 29.1 pg (26.0-34.0); MEAN CORPUSCULAR HGB CONC 33.7 G/dL (31.0-37.0); MEAN CORPUSCULAR VOLUME 86 fL (80-100); MONOCYTES # (AUTO) 0.7 K/uL (0.1-1.0); MONOCYTES % (AUTO) 6.2 % (2.0-9.0); NEUTROPHILS % (AUTO) 79.8 % (40.0-70.0); PLATELET COUNT (AUTO) 358 K/uL (150-450); RED BLOOD CELL COUNT(AUTO) 4.27 MIL/uL (4.50-5.90); RED CELL DISTRIBUTION WIDTH 12.9 % (11.5-14.5)
[2018-06-17 15:26] LABS: CALCIUM, TOTAL 9.6 mg/dL (8.8-10.5); CREATININE 1.56 mg/dL (0.60-1.30); POTASSIUM 4.4 mmol/L (3.5-5.1)
[2018-06-17 15:28] LABS: ALBUMIN 3.4 g/dL (3.4-5.0); BILIRUBIN,TOTAL 0.3 mg/dL (0.1-1.0); TOTAL PROTEIN, SERUM 7.6 g/dL (6.4-8.2)
[2018-06-17 16:17] LABS: APPEARANCE,URINE CLEAR (CLEAR); GLUCOSE, URINE (UA) NEGATIVE (NEGATIVE); KETONES,URINE TRACE mg/dL (NEGATIVE); LEUKOCYTE ESTERASE ,URINE SMALL (NEGATIVE); NITRATE,URINE NEGATIVE (NEGATIVE); OCCULT BLOOD,URINE NEGATIVE (NEGATIVE); PROTEIN,URINE NEGATIVE (NEGATIVE)
[2018-06-17 16:24] LABS: BILIRUBIN,URINE PRELIM. POSITIVE (NEGATIVE)
[2018-06-17 16:31] LABS: BACTERIA,URINE None Seen /HPF (None Seen); RBC,URINE None Seen /HPF (0-2); SQUAMOUS EPITHELIAL CELL,UR Few /LPF (None Seen)
[2018-06-17] MEDS ORDERED: CefTRIAXone 1 GM/DEXTROSE 50 ML IV ONE (16:45)
[2018-06-17 18:12] VITALS: BP 132/73
== END 2018-06-17 18:23 | disposition home or self-care (01) ==
LOC: EMS 13:00
DX: N39.0 Urinary tract infection, site not specified (principal); E11.9 Type 2 diabetes mellitus without complications; K21.9 Gastro-esophageal reflux disease without esophagitis; E78.00 Pure hypercholesterolemia, unspecified; I10 Essential (primary) hypertension; M19.90 Unspecified osteoarthritis, unspecified site; Z79.899 Other long term (current) drug therapy; Z79.84 Long term (current) use of oral hypoglycemic drugs
CPT/HCPCS: 36415; 71045; 80053; 81001; 82550; 82962; 83880; 84484; 85025; 87086; 93005; 96365; 99285; J0696

== ENCOUNTER 2019-03-14 17:37 | Emergency (ER) | payer MEDICAID ==
[~2019-03-14] VITALS: Ht 170.2 cm; Wt 90.9 kg
[~2019-03-14 17:37] MED LIST changes: +AMLO5TAB9 PO; +ATEN25TA PO; +CEPH500 PO; +CETI10TA59 PO; +FURO20 PO
[2019-03-14] MEDS ORDERED: SITA25 PO (17:46)
[2019-03-14 17:55] LABS: GLUCOSE,POINT OF CARE 249 MG/DL (70-110)
[2019-03-14] MEDS ORDERED: IBUPROFEN 600 MG TABLET PO ONE (19:30)
[2019-03-14 20:45] VITALS: BP 134/82
== END 2019-03-14 21:06 | disposition home or self-care (01) ==
LOC: EMS 17:39
DX: S16.1XXA Strain of muscle, fascia and tendon at neck level, initial encounter (principal); E78.00 Pure hypercholesterolemia, unspecified; E11.9 Type 2 diabetes mellitus without complications; I10 Essential (primary) hypertension; K21.9 Gastro-esophageal reflux disease without esophagitis; M19.90 Unspecified osteoarthritis, unspecified site; Z79.899 Other long term (current) drug therapy; X50.9XXA Other and unspecified overexertion or strenuous movements or postures, initial encounter; Y93.89 Activity, other specified; Y92.89 Other specified places as the place of occurrence of the external cause; Y99.8 Other external cause status

== ENCOUNTER 2019-12-03 16:55 | Emergency (ER) | payer MEDICARE, MEDICAID ==
[~2019-12-03] VITALS: Ht 170.2 cm; Wt 104.5 kg
[~2019-12-03 16:55] MED LIST changes: +ATEN-73 PO; -ATEN25TA PO; -CEPH500 PO; +CETI-450 PO; -CETI10TA59 PO; +CHOL400T56 PO; +GABA-1216 PO; -GABA-529 PO; +SITA25 PO; +TAMS-13 PO; -TAMS0.4C32 PO; -VITAD400 PO
[2019-12-03] MEDS ORDERED: INSLAN SQ (18:23)
[2019-12-03] MEDS ORDERED: METO25XL PO (18:23)
[2019-12-03] MEDS ORDERED: ASPI-728 PO (18:23)
[2019-12-03 18:53] LABS: HEMATOCRIT 35.5 % (41-53); HEMOGLOBIN 11.9 g/dL (13.5-17.5); MEAN CORPUSCULAR HEMOGLOBIN 30.5 pg (26.0-34.0); MEAN CORPUSCULAR HGB CONC 33.7 G/dL (31.0-37.0); MEAN CORPUSCULAR VOLUME 91 fL (80-100); PLATELET COUNT (AUTO) 331 K/uL (150-450); RED BLOOD CELL COUNT(AUTO) 3.92 MIL/uL (4.50-5.90); RED CELL DISTRIBUTION WIDTH 14.6 % (11.5-14.5)
[2019-12-03 19:03] LABS: ANION GAP 9 mmol/L (8-16); CALCIUM, TOTAL 9.6 mg/dL (8.8-10.5); CARBON DIOXIDE 31 mmol/L (22-29); CHLORIDE 105 mmol/L (98-107); CREATININE 1.64 mg/dL (0.60-1.30); GLOMERULAR FILTR. RATE CALC 41 mL/min (>60); GLUCOSE,RANDOM 187 mg/dL (70-110); POTASSIUM 4.9 mmol/L (3.5-5.1); SODIUM SERUM 145 mmol/L (136-145); UREA NITROGEN, BLOOD 34 mg/dL (7-18)
[2019-12-03 19:07] LABS: PROTHROMBIN TIME 10.3 SEC (9.4-11.6)
[2019-12-03 19:08] LABS: ALANINE AMINOTRANSFERASE 21 U/L (12-78); ALBUMIN 3.9 g/dL (3.4-5.0); ALKALINE PHOSPHATASE 64 U/L (46-116); ASPARTATE AMINOTRANSFERASE 15 U/L (15-37); BILIRUBIN,TOTAL 0.3 mg/dL (0.1-1.0); LIPASE 124 U/L (73-393); TOTAL PROTEIN, SERUM 8.1 g/dL (6.4-8.2)
[2019-12-03 19:23] LABS: B-TYPE NATRIURETIC PEPTIDE 149 pg/mL (0-100)
[2019-12-03 19:33] VITALS: BP 128/62
[2019-12-03 19:33] LABS: LACTIC ACID 2.5 mmol/L (0.4-2.0)
[2019-12-03 19:45] LABS: BAND NEUTROPHILS % (MANUAL) 3 % (0-5); BASOPHILS % (MANUAL) 3 % (0-2); EOSINOPHILS % (MANUAL) 6 % (1-6); LYMPHOCYTES % (MANUAL) 30 % (22-44); MONOCYTES % (MANUAL) 7 % (2-9); SEGMENTED NEUTROPHILS % 51 % (40-70)
== END 2019-12-03 19:50 | disposition home or self-care (01) ==
LOC: EMS 16:55
DX: R60.0 Localized edema (principal); L03.116 Cellulitis of left lower limb; L03.115 Cellulitis of right lower limb; I13.0 Hypertensive heart and chronic kidney disease with heart failure and stage 1 through stage 4 chronic kidney disease, or unspecified chronic kidney disease; E11.22 Type 2 diabetes mellitus with diabetic chronic kidney disease; N18.9 Chronic kidney disease, unspecified; I50.9 Heart failure, unspecified; E11.65 Type 2 diabetes mellitus with hyperglycemia; K21.9 Gastro-esophageal reflux disease without esophagitis; E78.00 Pure hypercholesterolemia, unspecified; Z79.4 Long term (current) use of insulin; Z79.899 Other long term (current) drug therapy; Z79.84 Long term (current) use of oral hypoglycemic drugs
CPT/HCPCS: 83605; 87040; 93005

== ENCOUNTER 2021-04-18 15:55 | Inpatient (IN) | payer MEDICARE, MEDICAID ==
[~2021-04-18] VITALS: Ht 170.2 cm; Wt 86.3 kg
[~2021-04-18 15:55] MED LIST changes: +ACET-66 PO; +ALBU8HFA IH; +ALLO100T2 PO; +AMLO10TA55 PO; -AMLO5TAB9 PO; +ASPI-1450 PO; -ATEN-73 PO; -CETI-450 PO; -CHOL400T56 PO; +COLC0.6T73 PO; +FAMO20 PO; -FURO20 PO; +GABA-1181 PO; -GABA-1216 PO; -GLIP10 PO; -LISI40TA4 PO; -MAGOX PO; -METF-960 PO; +METO25XL PO; +MULT-660 PO; -OMEP20 PO; -SITA25 PO; +TIOT4MIS2 IH
[2021-04-18 17:21] LABS: BASOPHILS % (AUTO) 0.6 % (0.0-2.0); EOSINOPHILS % (AUTO) 0.6 % (1.0-6.0); HEMATOCRIT 33.4 % (41-53); HEMOGLOBIN 10.9 g/dL (13.5-17.5); LYMPHOCYTES # (AUTO) 1.3 K/uL (1.0-4.8); LYMPHOCYTES % (AUTO) 13.7 % (22.0-44.0); MEAN CORPUSCULAR HEMOGLOBIN 30.2 pg (26.0-34.0); MEAN CORPUSCULAR HGB CONC 32.6 G/dL (31.0-37.0); MEAN CORPUSCULAR VOLUME 93 fL (80-100); MONOCYTES # (AUTO) 0.8 K/uL (0.1-1.0); NEUTROPHILS # (AUTO) 7.5 K/uL (1.8-7.7); NEUTROPHILS % (AUTO) 77.1 % (40.0-70.0); PLATELET COUNT (AUTO) 252 K/uL (150-450); RED BLOOD CELL COUNT(AUTO) 3.61 MIL/uL (4.50-5.90); RED CELL DISTRIBUTION WIDTH 13.8 % (11.5-14.5)
[2021-04-18 17:29] LABS: CALCIUM, TOTAL 9.3 mg/dL (8.8-10.5); CREATININE 1.5 mg/dL (0.60-1.30); POTASSIUM 4.4 mmol/L (3.5-5.1)
[2021-04-18 17:47] LABS: INR 1.1 (0.9-1.1); PROTHROMBIN TIME 11.4 SEC (9.4-11.6)
[2021-04-18 17:54] LABS: ALBUMIN 3.4 g/dL (3.4-5.0); BILIRUBIN,TOTAL 0.7 mg/dL (0.1-1.0); TOTAL PROTEIN, SERUM 6.7 g/dL (6.4-8.2)
[2021-04-18] MEDS ORDERED: ACETAMINOPHEN 500 MG TABLET PO PRN (19:00)
[2021-04-18] MEDS ORDERED: ONDANSETRON HCL 4 MG/2 ML VIAL IVP PRN (19:00)
[2021-04-18] MEDS ORDERED: ACETAMINOPHEN 325 MG TABLET PO PRN (19:00)
[2021-04-18] MEDS ORDERED: ALBUTEROL SULFATE HFA 90 MCG/PUFF 8 GM INHALER IH PRN (19:00)
[2021-04-18 19:53] LABS: GLUCOSE,POINT OF CARE 150 MG/DL (70-110)
[2021-04-18 21:18] LABS: COVID AG,FIA SOURCE NASOPHARYNGEAL
[2021-04-18 23:00] VITALS: BP 152/52
[2021-04-18] MEDS: HEPARIN SODIUM,PORCINE 5,000 UNITS/ML VIAL SQ SCH (23:51)
[2021-04-19] VITALS (10 sets, daily range): BP systolic 111–210; BP diastolic 60–114
[2021-04-19] MEDS ORDERED: DEXTROSE 50%-WATER 25 GM/50 ML SYRINGE IVP PRN (00:30)
[2021-04-19] MEDS: FUROSEMIDE 20 MG/2 ML VIAL IVP SCH ×3 (02:30→20:18)
[2021-04-19] MEDS ORDERED: INFLUENZA VIRUS VACCINE QVS 2021-22 (6MO+)/PF 60 MCG/0.5 ML SYRINGE IM. ONE (03:15)
[2021-04-19] MEDS: INSULIN LISPRO 100 UNITS/ML SQ PRN ×3 (06:58→21:09)
[2021-04-19] MEDS: HEPARIN SODIUM,PORCINE 5,000 UNITS/ML VIAL SQ SCH ×3 (08:00→16:00)
[2021-04-19 08:10] LABS: BASOPHILS % (AUTO) 0.8 % (0.0-2.0); EOSINOPHILS % (AUTO) 1.5 % (1.0-6.0); HEMATOCRIT 34.6 % (41-53); HEMOGLOBIN 11.3 g/dL (13.5-17.5); LYMPHOCYTES # (AUTO) 1.2 K/uL (1.0-4.8); LYMPHOCYTES % (AUTO) 14.3 % (22.0-44.0); MEAN CORPUSCULAR HEMOGLOBIN 30.3 pg (26.0-34.0); MEAN CORPUSCULAR HGB CONC 32.7 G/dL (31.0-37.0); MEAN CORPUSCULAR VOLUME 93 fL (80-100); MONOCYTES # (AUTO) 0.6 K/uL (0.1-1.0); MONOCYTES % (AUTO) 6.5 % (2.0-9.0); NEUTROPHILS # (AUTO) 6.6 K/uL (1.8-7.7); NEUTROPHILS % (AUTO) 76.9 % (40.0-70.0); PLATELET COUNT (AUTO) 239 K/uL (150-450); RED BLOOD CELL COUNT(AUTO) 3.73 MIL/uL (4.50-5.90); RED CELL DISTRIBUTION WIDTH 13.9 % (11.5-14.5)
[2021-04-19 08:17] LABS: CALCIUM, TOTAL 9.2 mg/dL (8.8-10.5); CREATININE 1.54 mg/dL (0.60-1.30); POTASSIUM 4.8 mmol/L (3.5-5.1)
[2021-04-19] MEDS: MULTIVITAMINS, THERAPEUTIC TABLET PO SCH (09:20)
[2021-04-19] MEDS: ASPIRIN 81 MG CHEWABLE TABLET PO SCH (09:21)
[2021-04-19] MEDS: GABAPENTIN 300 MG CAPSULE PO SCH (09:21)
[2021-04-19] MEDS: COLCHICINE 0.6 MG TABLET PO SCH (09:21)
[2021-04-19] MEDS: ATORVASTATIN CALCIUM 40 MG TABLET PO SCH (09:21)
[2021-04-19] MEDS: FAMOTIDINE 20 MG TABLET PO SCH (09:21)
[2021-04-19] MEDS: AmLODIPine BESYLATE 10 MG TABLET PO SCH (09:22)
[2021-04-19] MEDS: ALLOPURINOL 100 MG TABLET PO SCH (09:48)
[2021-04-19] MEDS: ALBUTEROL SULFATE 2.5 MG/0.5 ML NEB SOLUTION NEB SCH ×4 (11:00→23:00)
[2021-04-19] MEDS: IPRATROPIUM BROMIDE 0.5 MG/2.5 ML NEB SOLUTION NEB SCH ×4 (11:00→23:00)
[2021-04-19] MEDS ORDERED: SODIUM BICARBONATE 50 MEQ/50 ML VIAL ONE (11:34)
[2021-04-19] MEDS ORDERED: LIDOCAINE/PF 1% 30 ML VIAL ONE (11:34)
[2021-04-19] MEDS ORDERED: FentaNYL CITRATE PF 100 MCG/2 ML VIAL ONE (12:02)
[2021-04-19] MEDS ORDERED: IOHEXOL 300 MG/ML 50 ML VIAL ONE (12:03)
[2021-04-19] MEDS ORDERED: MIDAZOLAM HCL 2 MG/2 ML VIAL ONE (12:03)
[2021-04-19] MEDS ORDERED: LIDOCAINE 1% 30 ML/SOD BICARB 8.4% 4 ML SQ ONE (12:30)
[2021-04-19] MEDS ORDERED: FentaNYL CITRATE PF 100 MCG/2 ML VIAL IVP ONE ×2 (12:30→13:00)
[2021-04-19] MEDS ORDERED: MIDAZOLAM HCL 2 MG/2 ML VIAL IVP ONE ×2 (12:30→13:00)
[2021-04-19 13:22] LABS: GLUCOSE,POINT OF CARE 299 MG/DL (70-110)
[2021-04-19 13:24] LABS: GLUCOSE,POINT OF CARE 168 MG/DL (70-110)
[2021-04-19] MEDS: AmLODIPine BESYLATE 5 MG TABLET PO SCH ×2 (15:23→20:19)
[2021-04-19 15:51] LABS: GLUCOSE,POINT OF CARE 270 MG/DL (70-110)
[2021-04-19] MEDS ORDERED: SODIUM CHLORIDE 0.9% 250 ML IV ONE (18:04)
[2021-04-19] MEDS: CeFAZolin 1 GM/DEXTROSE 50 ML IV SCH (18:21)
[2021-04-20] VITALS: BP 126/64
[2021-04-20] MEDS: HEPARIN SODIUM,PORCINE 5,000 UNITS/ML VIAL SQ SCH ×3 (00:05→18:11)
[2021-04-20] MEDS: CeFAZolin 1 GM/DEXTROSE 50 ML IV SCH ×2 (00:29→06:33)
[2021-04-20] MEDS: ALBUTEROL SULFATE 2.5 MG/0.5 ML NEB SOLUTION NEB SCH ×6 (02:40→23:15)
[2021-04-20] MEDS: IPRATROPIUM BROMIDE 0.5 MG/2.5 ML NEB SOLUTION NEB SCH ×6 (02:41→23:15)
[2021-04-20 04:00] VITALS: BP 145/63
[2021-04-20 05:16] LABS: BASOPHILS % (AUTO) 1.1 % (0.0-2.0); EOSINOPHILS % (AUTO) 2.3 % (1.0-6.0); HEMATOCRIT 33.1 % (41-53); HEMOGLOBIN 11.2 g/dL (13.5-17.5); LYMPHOCYTES # (AUTO) 1.3 K/uL (1.0-4.8); LYMPHOCYTES % (AUTO) 15.7 % (22.0-44.0); MEAN CORPUSCULAR HGB CONC 33.9 G/dL (31.0-37.0); MEAN CORPUSCULAR VOLUME 91 fL (80-100); MONOCYTES # (AUTO) 0.9 K/uL (0.1-1.0); MONOCYTES % (AUTO) 10.1 % (2.0-9.0); NEUTROPHILS % (AUTO) 70.8 % (40.0-70.0); PLATELET COUNT (AUTO) 243 K/uL (150-450); RED BLOOD CELL COUNT(AUTO) 3.63 MIL/uL (4.50-5.90); RED CELL DISTRIBUTION WIDTH 13.4 % (11.5-14.5)
[2021-04-20 05:24] LABS: CALCIUM, TOTAL 9.1 mg/dL (8.8-10.5); CREATININE 1.38 mg/dL (0.60-1.30); POTASSIUM 3.4 mmol/L (3.5-5.1)
[2021-04-20 08:00] VITALS: BP 140/65
[2021-04-20] MEDS ORDERED: SODIUM CHLORIDE 0.9% 250 ML IV ONE (08:34)
[2021-04-20] MEDS: GABAPENTIN 300 MG CAPSULE PO SCH (10:10)
[2021-04-20] MEDS: MULTIVITAMINS, THERAPEUTIC TABLET PO SCH (10:10)
[2021-04-20] MEDS: FAMOTIDINE 20 MG TABLET PO SCH (10:10)
[2021-04-20] MEDS: ASPIRIN 81 MG CHEWABLE TABLET PO SCH (10:10)
[2021-04-20] MEDS: FUROSEMIDE 20 MG/2 ML VIAL IVP SCH ×2 (10:11→22:23)
[2021-04-20] MEDS: AmLODIPine BESYLATE 10 MG TABLET PO SCH (10:11)
[2021-04-20] MEDS: COLCHICINE 0.6 MG TABLET PO SCH (10:11)
[2021-04-20] MEDS: AmLODIPine BESYLATE 5 MG TABLET PO SCH ×2 (10:11→22:23)
[2021-04-20] MEDS: ATORVASTATIN CALCIUM 40 MG TABLET PO SCH (10:12)
[2021-04-20] MEDS: ALLOPURINOL 100 MG TABLET PO SCH (10:13)
[2021-04-20] MEDS: INSULIN LISPRO 100 UNITS/ML SQ PRN ×2 (10:33→22:39)
[2021-04-20] MEDS ORDERED: FERR325T23 PO (11:24)
[2021-04-20] MEDS ORDERED: HYDR25TA84 PO (11:24)
[2021-04-20] MEDS ORDERED: CHOL100062 PO (11:24)
[2021-04-20] MEDS ORDERED: INSU100V39 SQ (11:24)
[2021-04-20] MEDS ORDERED: SITA25 PO (11:24)
[2021-04-20] MEDS ORDERED: INSLAN SQ (11:24)
[2021-04-20] MEDS ORDERED: ASPI-1444 PO (11:24)
[2021-04-20] MEDS ORDERED: AMLO-257 PO (11:24)
[2021-04-20 12:00] VITALS: BP 142/64
[2021-04-20 16:00] VITALS: BP 142/67
[2021-04-20 18:38] LABS: GLUCOSE,POINT OF CARE 253 MG/DL (70-110)
[2021-04-20 18:38] LABS: GLUCOSE,POINT OF CARE 375 MG/DL (70-110)
[2021-04-20 20:00] VITALS: BP 145/66
[2021-04-21] VITALS: BP 166/79
[2021-04-21] MEDS ORDERED: INSULIN LISPRO 100 UNITS/ML SQ ONE ×2 (00:45→11:45)
[2021-04-21] MEDS ORDERED: POTASSIUM CHLORIDE 20 MEQ ER TABLET PO ONE (00:45)
[2021-04-21] MEDS: HEPARIN SODIUM,PORCINE 5,000 UNITS/ML VIAL SQ SCH ×2 (00:53→09:10)
[2021-04-21] MEDS: IPRATROPIUM BROMIDE 0.5 MG/2.5 ML NEB SOLUTION NEB SCH ×3 (03:35→11:02)
[2021-04-21] MEDS: ALBUTEROL SULFATE 2.5 MG/0.5 ML NEB SOLUTION NEB SCH ×3 (03:35→11:02)
[2021-04-21 04:00] VITALS: BP 153/79
[2021-04-21] MEDS: INSULIN LISPRO 100 UNITS/ML SQ PRN (06:02)
[2021-04-21 06:37] LABS: GLUCOSE,POINT OF CARE 280 MG/DL (70-110)
[2021-04-21 06:37] LABS: GLUCOSE,POINT OF CARE 239 MG/DL (70-110)
[2021-04-21 07:21] LABS: CALCIUM, TOTAL 9.3 mg/dL (8.8-10.5); CREATININE 1.28 mg/dL (0.60-1.30)
[2021-04-21 07:29] LABS: POTASSIUM 3.6 mmol/L (3.5-5.1)
[2021-04-21 08:08] VITALS: BP 160/84
[2021-04-21] MEDS ORDERED: METOPROLOL SUCCINATE 25 MG ER TABLET PO SCH (09:00)
[2021-04-21] MEDS ORDERED: FUROSEMIDE 20 MG TABLET PO SCH (09:00)
[2021-04-21] MEDS: GABAPENTIN 300 MG CAPSULE PO SCH (09:09)
[2021-04-21] MEDS: FAMOTIDINE 20 MG TABLET PO SCH (09:10)
[2021-04-21] MEDS: MULTIVITAMINS, THERAPEUTIC TABLET PO SCH (09:10)
[2021-04-21] MEDS: ATORVASTATIN CALCIUM 40 MG TABLET PO SCH (09:10)
[2021-04-21] MEDS: COLCHICINE 0.6 MG TABLET PO SCH (09:10)
[2021-04-21] MEDS: ALLOPURINOL 100 MG TABLET PO SCH (09:10)
[2021-04-21] MEDS: ASPIRIN 81 MG CHEWABLE TABLET PO SCH (09:10)
[2021-04-21] MEDS: AmLODIPine BESYLATE 10 MG TABLET PO SCH (09:10)
[2021-04-21] MEDS ORDERED: FURO20 PO (10:47)
[2021-04-21 11:56] VITALS: BP 148/74
[2021-04-21 20:25] LABS: GLUCOMETER DEV NAME(LOC) 5N.3; GLUCOSE,POINT OF CARE 419 MG/DL (70-110)
[2021-04-21 20:26] LABS: GLUCOMETER DEV NAME(LOC) 5N.3; GLUCOSE,POINT OF CARE 415 MG/DL (70-110)
[2021-04-21] MEDS ORDERED: INSULIN GLARGINE,HUM.REC.ANLOG 100 UNITS/ML SQ SCH (21:00)
[2021-04-23 05:28] LABS: GLUCOMETER DEV NAME(LOC) 5N.1C; GLUCOSE,POINT OF CARE 377 MG/DL (70-110)
[2021-04-23 05:28] LABS: GLUCOMETER DEV NAME(LOC) 5N.1C; GLUCOSE,POINT OF CARE 200 MG/DL (70-110)
== END 2021-04-21 13:00 | disposition home or self-care (01) | DRG 242 ==
LOC: EMS 15:56 → ICU 20:00 → 5S 04-20 21:06
PROVIDERS: ADMIT Internal Medicine; ATTEND Internal Medicine
PROC: 0JH606Z Insertion of Pacemaker, Dual Chamber into Chest Subcutaneous Tissue and Fascia, Open Approach (ICD-10-PCS; principal; 2021-04-19)
PROC: 02H63JZ Insertion of Pacemaker Lead into Right Atrium, Percutaneous Approach (ICD-10-PCS; 2021-04-19)
PROC: 02HK3JZ Insertion of Pacemaker Lead into Right Ventricle, Percutaneous Approach (ICD-10-PCS; 2021-04-19)
PROC: 4B02XSZ Measurement of Cardiac Pacemaker, External Approach (ICD-10-PCS; 2021-04-20)
DX: I44.2 Atrioventricular block, complete (principal); I50.43 Acute on chronic combined systolic (congestive) and diastolic (congestive) heart failure; I13.0 Hypertensive heart and chronic kidney disease with heart failure and stage 1 through stage 4 chronic kidney disease, or unspecified chronic kidney disease; N17.9 Acute kidney failure, unspecified; E11.22 Type 2 diabetes mellitus with diabetic chronic kidney disease; N18.30 Chronic kidney disease, stage 3 unspecified; I25.10 Atherosclerotic heart disease of native coronary artery without angina pectoris; E78.5 Hyperlipidemia, unspecified; J44.9 Chronic obstructive pulmonary disease, unspecified; K21.9 Gastro-esophageal reflux disease without esophagitis; D64.9 Anemia, unspecified; E87.6 Hypokalemia; Z20.822 Contact with and (suspected) exposure to COVID-19; E78.00 Pure hypercholesterolemia, unspecified; E11.51 Type 2 diabetes mellitus with diabetic peripheral angiopathy without gangrene; N40.0 Benign prostatic hyperplasia without lower urinary tract symptoms; Z82.49 Family history of ischemic heart disease and other diseases of the circulatory system; Z83.3 Family history of diabetes mellitus; Z95.0 Presence of cardiac pacemaker; Z79.84 Long term (current) use of oral hypoglycemic drugs; Z79.899 Other long term (current) drug therapy; Z79.82 Long term (current) use of aspirin; Z79.4 Long term (current) use of insulin
CPT/HCPCS: 33208; 71045; 71046; 76000; 80048; 80053; 82550; 82962; 83880; 84484; 85025; 85610; 85730; 87081; 90686; 93005; 93306; 94640; 99291; G0378; J0690; J1644; J1815; J1940; J2250; J3010; J3490; J7050; Q9967; 36415-L1; 36415-TC; G0008; J7613